=== PATIENT | female | born 1940 | race Caucasian/White ===

== ENCOUNTER 2016-08-01 05:22 | Day surgery (SDC) | payer OTHER ==
[~2016-08-01] VITALS: Ht 157.5 cm; Wt 65.3 kg
[~2016-08-01 05:22] MED LIST: ACID CONTROL150 MG PO; ATIVAN0.5 MG PO; NORVASC5 MG PO; PRAVACHOL10 MG PO; TIMOPTIC-0100 DROP/1 BOTH EYES
[2016-08-01 06:13] VITALS: BP 188/87
[2016-08-01 13:06] VITALS: BP 132/78
[2016-08-01 14:09] VITALS: BP 133/76
[2016-08-01 16:30] VITALS: BP 156/84
== END 2016-08-01 17:10 | disposition home or self-care (01) ==
LOC: SDC 05:22 → NUC 07:30 → SDC 07:30
DX: C50.911 Malignant neoplasm of unspecified site of right female breast (principal); K21.9 Gastro-esophageal reflux disease without esophagitis; I10 Essential (primary) hypertension; L93.0 Discoid lupus erythematosus; E78.00 Pure hypercholesterolemia, unspecified
CPT/HCPCS: 78195; 88305; 88307; 88331; 88332; A9541; J0131; J0330; J1100; J1170; J2405; J3010; S0020

== ENCOUNTER 2016-09-26 12:06 | Day surgery (SDC) | payer OTHER ==
[~2016-09-26] VITALS: Ht 157.5 cm; Wt 65.3 kg
[2016-09-26] MEDS ORDERED: TOPROL XL25 MG PO (12:14)
[2016-09-26] MEDS ORDERED: AUGMENTIN500 MG PO (12:15)
[2016-09-26 12:49] VITALS: BP 156/84
[2016-09-26 16:05] VITALS: BP 145/70
[2016-09-26 16:45] VITALS: BP 141/71
== END 2016-09-26 17:00 | disposition home or self-care (01) ==
LOC: SDC 12:06
PROC: 0H9BXZZ Drainage of Right Upper Arm Skin, External Approach (ICD-10-PCS; principal; 2016-09-26)
DX: T81.4XXA Infection following a procedure, initial encounter (principal); L02.411 Cutaneous abscess of right axilla; C50.911 Malignant neoplasm of unspecified site of right female breast; L93.0 Discoid lupus erythematosus; H40.9 Unspecified glaucoma; E78.5 Hyperlipidemia, unspecified; I10 Essential (primary) hypertension; K21.9 Gastro-esophageal reflux disease without esophagitis; Z86.19 Personal history of other infectious and parasitic diseases; Z92.21 Personal history of antineoplastic chemotherapy; Z80.1 Family history of malignant neoplasm of trachea, bronchus and lung; Z80.3 Family history of malignant neoplasm of breast; Z82.49 Family history of ischemic heart disease and other diseases of the circulatory system; Z80.8 Family history of malignant neoplasm of other organs or systems; Z87.891 Personal history of nicotine dependence; Z88.8 Allergy status to other drugs, medicaments and biological substances
CPT/HCPCS: 87075; 87205; J1170; J3010; S0020

== ENCOUNTER 2017-09-27 22:51 | Inpatient (IN) | payer OTHER ==
[~2017-09-27] VITALS: Ht 157.5 cm; Wt 64.2 kg
[~2017-09-27 22:51] MED LIST changes: +AUGMENTIN500 MG PO; +STOOL SOFTENER100 MG PO; +TOPROL XL25 MG PO
[2017-09-27 23:15] LABS: BASOPHIL (%) 0.5 % (0-1); EOSINOPHIL (%) 3.2 % (0-5); EOSINOPHIL COUNT 0.2 K/uL (0-0.3); HEMATOCRIT 39.3 % (36.0-46.0); HEMOGLOBIN 13.2 G/DL (11.9-15.5); IMMATURE GRANULOCYTE (%) 0.2 % (0.0-0.7); LYMPHOCYTE (%) 37.5 % (15-42); LYMPHOCYTE COUNT 2.1 K/uL (1.0-2.8); MCH 29.3 PG (29.0-34.0); MCHC 33.6 G/DL (30.0-36.0); MCV 87.3 FL (83-99); MONOCYTE (%) 13.4 % (3-12); MONOCYTE COUNT 0.8 K/uL (0-0.8); NEUTROPHIL (%) 45.2 % (45-76); NEUTROPHIL COUNT 2.6 K/uL (1.8-6.4); PLATELET COUNT 120 K/uL (156-360); RBC DIS.WIDTH-CV 12.8 % (11.8-14.6); RBC DIS.WIDTH-SD 41.1 % (39-53); WHITE BLOOD COUNT 5.7 K/uL (4.1-10.2)
[2017-09-27 23:24] LABS: AMYLASE 78 IU/L (1-118); CHLORIDE 105 mEq/L (99-109); INTER. NORMALIZED RATIO 0.9; POTASSIUM 3.4 mEq/L (3.7-5.4); SODIUM 139 mEq/L (136-147)
[2017-09-27 23:25] LABS: GLUCOSE 132 mg/dL (70-99)
[2017-09-27 23:26] LABS: PTT 26.8 SEC (25-37)
[2017-09-27 23:29] LABS: CREATININE 1.1 mg/dL (0.6-1.3); GFR ESTIMATE (CALCULATED) 51 mL/min/; SERUM ETHYL ALCOHOL < 10 mg/dL
[2017-09-27 23:30] LABS: UREA NITROGEN (BUN) 17 mg/dL (9-23)
[2017-09-27 23:32] LABS: LIPASE 91 U/L (1.0-51.0)
[2017-09-27 23:36] LABS: TROP-I INTERPRETATION NEGATIVE; TROPONIN-I 0.07 ng/mL (0.0-0.30)
[2017-09-28] VITALS (24 sets, daily range): BP systolic 0–129; BP diastolic 0–78
[2017-09-28 09:12] LABS: BASOPHIL (%) 0.6 % (0-1); EOSINOPHIL (%) 0.9 % (0-5); EOSINOPHIL COUNT 0.1 K/uL (0-0.3); HEMATOCRIT 38.5 % (36.0-46.0); HEMOGLOBIN 12.6 G/DL (11.9-15.5); IMMATURE GRANULOCYTE (%) 0.2 % (0.0-0.7); LYMPHOCYTE (%) 23.7 % (15-42); LYMPHOCYTE COUNT 1.3 K/uL (1.0-2.8); MCH 28.6 PG (29.0-34.0); MCHC 32.7 G/DL (30.0-36.0); MCV 87.3 FL (83-99); MONOCYTE (%) 11.8 % (3-12); MONOCYTE COUNT 0.6 K/uL (0-0.8); NEUTROPHIL (%) 62.8 % (45-76); NEUTROPHIL COUNT 3.4 K/uL (1.8-6.4); PLATELET COUNT 118 K/uL (156-360); RBC DIS.WIDTH-CV 12.7 % (11.8-14.6); RBC DIS.WIDTH-SD 40.6 % (39-53); RED BLOOD COUNT 4.41 M/uL (3.80-5.20); WHITE BLOOD COUNT 5.4 K/uL (4.1-10.2)
[2017-09-28 09:34] LABS: CHLORIDE 106 MEQ/L (99-109); CREATININE 0.7 MG/DL (0.6-1.3); GFR ESTIMATE (CALCULATED) > 59 mL/min/; GLUCOSE 100 mg/dL (70-99); HDL CHOLESTEROL 41 MG/DL (Desirable>=50); LDL CHOLESTEROL 97 mg/dL (Desirable<100); NON-HDL CHOLESTEROL 116 mg/dL (Desirable<160); POTASSIUM 3.7 MEQ/L (3.7-5.4); SODIUM 141 MEQ/L (136-147); TOTAL CHOLESTEROL 157 mg/dL (Desirable<200); TRIGLYCERIDES 95 MG/DL (Normal: <150); UREA NITROGEN (BUN) 12 mg/dL (9-23)
[2017-09-28 10:29] LABS: HEMOGLOBIN A1c (GLYCOHEMOGLOB) 5.5 % (Below 5.7)
[2017-09-28 12:35] LABS: CREATINE KINASE 708 IU/L (1-294); TOTAL CK 708 IU/L (1-294)
[2017-09-28 12:43] LABS: TROP-I INTERPRETATION POSITIVE
[2017-09-28 13:00] LABS: CK-MB 67.9 ng/mL (0.0-4.9); CKMB RELATIVE INDEX 9.6 (0.0-3.9)
[2017-09-28 18:22] LABS: CREATINE KINASE 535 IU/L (1-294); TOTAL CK 535 IU/L (1-294)
[2017-09-28 18:23] LABS: CK-MB 54.8 ng/mL (0.0-4.9); CKMB RELATIVE INDEX 10.2 (0.0-3.9); TROP-I INTERPRETATION POSITIVE; TROPONIN-I 24.63 ng/mL (0.0-0.30)
[2017-09-29 00:38] LABS: TROP-I INTERPRETATION POSITIVE
[2017-09-29 00:39] LABS: TROPONIN-I 16.54 ng/mL (0.0-0.30)
[2017-09-29 00:40] LABS: CREATINE KINASE 378 IU/L (1-294); TOTAL CK 378 IU/L (1-294)
[2017-09-29 00:46] LABS: CK-MB 29.1 ng/mL (0.0-4.9); CKMB RELATIVE INDEX 7.7 (0.0-3.9)
[2017-09-29 03:42] VITALS: BP 143/73
[2017-09-29] MEDS ORDERED: ASPIR-LOW81 MG PO (09:00)
[2017-09-29] MEDS ORDERED: NITROSTAT0.4 MG SL (09:00)
[2017-09-29] MEDS ORDERED: BRILINTA90 MG PO (09:00)
[2017-09-29] MEDS ORDERED: ATORVASTATIN CA80 MG PO (09:00)
== END 2017-09-29 12:10 | disposition home or self-care (01) | DRG 249 ==
LOC: EME 22:51 → ENRESERV 23:13 → CATH 23:50 → EME 23:50 → 4WEST 09-28 00:52 → ENRESERV 09-28 10:55 → 4EAST 09-28 12:53
PROVIDERS: Emergency Medicine; Internal Medicine Cardiovascular Disease
DX: I21.09 ST elevation (STEMI) myocardial infarction involving other coronary artery of anterior wall (principal); E78.5 Hyperlipidemia, unspecified; I10 Essential (primary) hypertension; I25.110 Atherosclerotic heart disease of native coronary artery with unstable angina pectoris; Z87.891 Personal history of nicotine dependence; Z85.3 Personal history of malignant neoplasm of breast; Z90.10 Acquired absence of unspecified breast and nipple; Z92.3 Personal history of irradiation; R91.1 Solitary pulmonary nodule
CPT/HCPCS: 71045; 80048; 80061; 81003; 82150; 82550; 82550 91; 82553; 83036; 83690; 84484; 85025; 85347; 85610; 85730; 86850; 86870; 86900; 86901; 86905; 86920; 87641; 93005; 99281; 99285; C1725; C1769; C1876; C1887; G0480; J1644; J2250; J2405; J3010

== ENCOUNTER → 2017-11-07 | Outpatient (CLI) | payer OTHER ==
[~2017-11-07] MED LIST changes: +ASPIR-LOW81 MG PO; +ATORVASTATIN CA80 MG PO; +BRILINTA90 MG PO; +NITROSTAT0.4 MG SL
[2017-11-07 08:37] LABS: HEMATOCRIT 37.9 % (36.0-46.0); HEMOGLOBIN 12.5 G/DL (11.9-15.5); MCH 29.1 PG (29.0-34.0); MCV 88.3 FL (83-99); PLATELET COUNT 117 K/uL (156-360); RBC DIS.WIDTH-CV 13.2 % (11.8-14.6); RBC DIS.WIDTH-SD 42.8 % (39-53); RED BLOOD COUNT 4.29 M/uL (3.80-5.20); WHITE BLOOD COUNT 4.6 K/uL (4.1-10.2)
[2017-11-07 08:42] LABS: INTER. NORMALIZED RATIO 1.1
[2017-11-07 08:45] LABS: PTT 28.9 SEC (25-37)
== END | disposition home or self-care (01) ==
LOC: OPR 09-18 08:00 → EDSTATUS 08:00
PROVIDERS: Internal Medicine Pulmonary Disease
PROC: 0BDG4ZX Extraction of Left Upper Lung Lobe, Percutaneous Endoscopic Approach, Diagnostic (ICD-10-PCS; principal; 2017-11-07)
DX: C78.02 Secondary malignant neoplasm of left lung (principal); J95.811 Postprocedural pneumothorax; Z85.3 Personal history of malignant neoplasm of breast; Z87.891 Personal history of nicotine dependence; Z90.10 Acquired absence of unspecified breast and nipple; Z92.3 Personal history of irradiation; Z92.21 Personal history of antineoplastic chemotherapy; Z80.1 Family history of malignant neoplasm of trachea, bronchus and lung
CPT/HCPCS: 71045; 77012; 85027; 85610; 85730; 88305; 88341 TC; 88342 TC; J2405; J3010